=== PATIENT | female | born 1950 | race African-American/Black ===

== ENCOUNTER 2018-02-13 08:40 | Outpatient (CLI) | payer MEDICARE, MEDICAID | END 2018-02-13 08:41 | disposition home or self-care (01) | LOC: BICMAMMO 08:40 | PROVIDERS: ATTEND Internal Medicine | DX: Z12.31 Encounter for screening mammogram for malignant neoplasm of breast (principal); L90.5 Scar conditions and fibrosis of skin | CPT/HCPCS: 77063; 77067 ==

== ENCOUNTER 2018-04-10 13:15 | Observation (INO) | payer MEDICARE, OTHER ==
[2018-04-10 14:03] LABS: #Basophils 0.1 thou/uL (0.0-0.2); #Eosinphils 0.4 thou/uL (0.0-0.7); #Lymphocytes 2.4 thou/uL (1.20-3.40); #Monocytes 0.3 thou/uL (0.11-0.59); #Neutrophils 1.7 thou/uL (1.40-6.50); %Basophils 2.2 % (0.0-1.0); %Lymphocytes 47.9 % (21.0-51.0); %Monocytes 6.5 % (0.0-10.0); %Neutrophils 34.4 % (42.0-75.0); Mean Corpuscular HGB CONC 33.5 g/dL (32.0-36.0); Mean Corpuscular Hemoglobin 31.2 pg (27.0-31.0); Mean Corpuscular Volume 93.1 fL (78.0-98.0); Mean Platelet Volume 6.9 fL (7.4-10.4); Platelet Count 236 thou/uL (130-400); RBC Distribution Width 11.9 % (11.5-14.5); Red Blood Cell (RBC) Count 4.47 mill/uL (4.20-5.40); White Blood Cell (WBC) Count 4.9 thou/uL (4.8-10.8)
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
[2018-04-10 14:24] LABS: ALT (SGPT) 13 U/L (8-55); AST (SGOT) 22 U/L (5-34); Albumin 4.2 g/dL (3.4-4.8); Alkaline Phosphatase 85 U/L (40-150); Anion Gap 15 mmol/L (10-20); BUN (Urea Nitrogen) 10 mg/dL (9.8-20.1); Bilirubin, Total 0.4 mg/dL (0.2-1.2); CK (CPK) 53 U/L (29-168); Calc. Creatinine Clearance 0 mL/min (70-130); Calcium 9.4 mg/dL (7.8-10.44); Carbon Dioxide 24 mmol/L (23-31); Chloride 106 mmol/L (98-107); Estimated GFR-MDRD Greater than 90; Globulin 3.1 g/dL (2.4-3.5); Glucose 80 mg/dL (80-115); Lipase 13 U/L (8-78); Protein, Total 7.3 g/dL (6.0-8.3); Sodium 141 mmol/L (136-145)
[2018-04-10 14:28] LABS: CKMB 0.6 ng/mL (0-6.6); Troponin I Less than 0.010 ng/mL (< 0.028)
[2018-04-10] MEDS ORDERED: ISOVUE-370 76%-LOCM 1 ML ONE (14:42)
[2018-04-10 15:26] LABS: Bilirubin Negative (Negative); Blood, Urine Trace (Negative); Clarity CLEAR (Clear); Glucose, Urine (Dipstick) Negative (Negative); Leukocyte Trace (Negative); Nitrite Negative (Negative); Protein, Urine (Dipstick) Negative (Neg-Trace); Specific Gravity, Urine 1.016 (1.002-1.036)
[2018-04-10 15:29] LABS: Bacteria/HPF None Seen HPF (None Seen); Hyaline Casts/LPF 0-3 HYALINE CAST LPF (0-3 Hyaline); Pathc Cast-AUWi Flag 0.29 (0-2.49); Squamous Epithelial 0-3 HPF (0-3); WBC/HPF 0-3 HPF (0-3)
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
[2018-04-10] MEDS ORDERED: Nitroglycerin 2% Ointment 1 INCH/1 GM Packet ONE (17:03)
[2018-04-10] MEDS ORDERED: Aspirin 325 MG TAB ONE (17:03)
[2018-04-10] MEDS ORDERED: HYDROcodone/Acetaminophen 7.5/325 mg Tablet ONE (18:37)
[2018-04-10] MEDS ORDERED: HYDROcodone/Acetaminophen 10/325 mg Tablet ONE (18:41)
[2018-04-10 18:56] LABS: Troponin I Less than 0.010 ng/mL (< 0.028)
[2018-04-10] MEDS ORDERED: Ondansetron ODT 4 MG TAB SL PRN (20:09)
[2018-04-10] MEDS ORDERED: Ondansetron HCl/PF 4 MG/2 ML Vial IVP PRN (20:09)
[2018-04-10] MEDS ORDERED: Sodium Chloride 0.9% 1,000 ML IV SCH ×2 (20:09→20:34)
[2018-04-10] MEDS ORDERED: HYDROcodone/Acetaminophen 10/325 mg Tablet PO PRN (20:34)
[2018-04-10] MEDS ORDERED: Acetaminophen 325 MG TAB PO PRN (20:35)
[2018-04-10] MEDS ORDERED: Citalopram 20 MG TAB PO SCH (21:00)
[2018-04-10 23:21] VITALS: BMI 36.3
[2018-04-11 00:21] LABS: Troponin I Less than 0.010 ng/mL (< 0.028)
--- NOTE | 2018-04-11 00:46 | HP ---
CODE STATUS: FULL CODE PRIMARY CARE PHYSICIAN: Dr. Soriano. TIME OF EVALUATION: 07:30 p.m. CHIEF COMPLAINT: Chest pain. HISTORY OF PRESENT ILLNESS: This is a 67-year-old female patient with past medical history of chroni c back pain. The patient came to the hospital after having chest pain that has been on and off for a bout 1 week. The patient reporting the pain is mild to moderate and that has been on the left side, radiating to the lower area of the ribcage. She reports that it gets worse with movement of the ches t wall, no alleviating factors. Of note, the patient has been working out since 08/2017 and has got very good results, and has been exercising about 4-5 times a week. The patient does have a family hi story of coronary artery disease and hyperlipidemia in the family. Pain is associated with decrease in physical activity due to pain with movement in the back and chest. REVIEW OF SYSTEMS: Constitutional: No fever, chills, generalized weakness. Respiratory: No cough or sputum production, no shortness of breath. Cardiovascular: Chest pain as described in HPI. No p alpitation. No shortness of breath. Gastrointestinal: No nausea, no vomiting, no diarrhea or abdom inal pain. 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 Genitourinary: No burning on urina tion. Extremities: No leg swelling. All other systems were reviewed and negative except for the fi ndings mentioned above. PAST MEDICAL HISTORY: The patient has chronic back pain. SOCIAL HISTORY: She lives with family, no drugs, no smoking history. PAST SURGICAL HISTORY: Surgery in the back, hysterectomy, breast reduction, abdominal surgery. PSYCHIATRIC HISTORY: Depression. ALLERGIES: No known drug allergies. REPORTED MEDICATIONS: Louann, pantoprazole, aspirin. PHYSICAL EXAMINATION: VITAL SIGNS: On presentation, blood pressure 117/78 with heart rate 80, respiratory rate was 19, tem perature 98.5. GENERAL APPEARANCE: She is alert, oriented, not in any acute distress. HEENT: Eyes: Normal conjunctivae. Moist oral mucosa. Anicteric. NECK: No JVD. RESPIRATORY: Bilateral air entry. No rales, no wheezing. Symmetric expansion. CARDIOVASCULAR: Normal rate, regular rhythm. No murmurs, no gallop. No edema. ABDOMEN: Soft, normal bowel sounds. MUSCULOSKELETAL: Baseline range of motion and strength. No tenderness. SKIN: Warm and intact. No pallor, no rash, no redness. NEUROLOGIC: Baseline sensorium. No evidence of any new focal weakness. Baseline speech. Cranial n erves seem to be intact. PSYCHIATRIC: Good mood. No anxiety, oriented, optimal judgment. IMAGING: EKG was reviewed. The patient has normal sinus rhythm with a rate of 72 with a sinus arrhy thmia, QT corrected no evidence of any acute ischemic changes. Chest CT was done with contrast , no pulmonary embolism, no thoracic aortic dissection, no pneumothorax, no hemothorax, no masses. N o evidence of any acute findings. LABORATORY DATA: Labs were reviewed. The patient has white count 4.9, hemoglobin 14, MCV 93, platel et count 236. Sodium 141, potassium 4, chloride 106, carbon dioxide 24, anion gap 15, BUN 10, creati nine 0.71. GFR greater than 90, glucose 80, calcium 9.4, total bilirubin 0.4. Rest of LFTs were neg ative. Troponin has been negative twice. There was no pain and UA was negative. ASSESSMENT AND PLAN: The patient will be placed in the hospital for the following medical problems. 1. Chest pain, rule out acute coronary syndrome. The patient has a family history of CAD with hyper lipidemia, we will trend troponins, continue to monitor on tele. We will do a stress test in the [facility], especially since the patient has started working out since August and most likely fredyin g workout, we will rule out acute coronary syndromes or underlying undiagnosed coronary artery diseas e. 2. Deep venous thrombosis prophylaxis. 3. Chronic back pain, reconcile home medications.
[2018-04-11 04:51] LABS: BUN (Urea Nitrogen) 8 mg/dL (9.8-20.1); Calc. Creatinine Clearance 118 mL/min (70-130); Calcium 9.6 mg/dL (7.8-10.44); Estimated GFR-MDRD Greater than 90; Glucose 89 mg/dL (80-115)
[2018-04-11 05:00] LABS: Anion Gap 14 mmol/L (10-20); Carbon Dioxide 21 mmol/L (23-31); Chloride 107 mmol/L (98-107); Potassium 4.8 mmol/L (3.5-5.1); Sodium 137 mmol/L (136-145)
[2018-04-11 05:35] LABS: #Eosinphils 0.2 thou/uL (0.0-0.7); #Lymphocytes 1.4 thou/uL (1.20-3.40); #Monocytes 0.3 thou/uL (0.11-0.59); #Neutrophils 2.1 thou/uL (1.40-6.50); %Eosinophils 4.5 % (0.0-10.0); %Lymphocytes 34.9 % (21.0-51.0); %Monocytes 7.7 % (0.0-10.0); %Neutrophils 51.9 % (42.0-75.0); Hemoglobin 13.2 g/dL (12.0-16.0); Mean Corpuscular Hemoglobin 30.7 pg (27.0-31.0); Mean Corpuscular Volume 92.9 fL (78.0-98.0); Platelet Count 226 thou/uL (130-400); RBC Distribution Width 11.8 % (11.5-14.5); White Blood Cell (WBC) Count 3.9 thou/uL (4.8-10.8)
[2018-04-11 07:55] VITALS: TEMP 98.1
[2018-04-11] MEDS ORDERED: Aspirin 325 MG TAB PO SCH (08:00)
[2018-04-11] MEDS ORDERED: Enoxaparin Sodium 40 MG/0.4 ML SYRINGE SC SCH (09:00)
[2018-04-11] MEDS ORDERED: Aspirin 81 mg Enteric Coated Tablet PO SCH (09:00)
--- NOTE | 2018-04-11 14:38 | NM ---
MYOCARDIAL PERFUSION EVALUATION: INDICATION: Chest pain. RADIOPHARMACEUTICAL: 29.2 mCi Technetium 99m sestamibi IV with stress and 9.1 mCi Technetium of 99m sestamibi IV with rest . FINDINGS: When comparing the rest and stress images, no reversible myocardial perfusion defect is evident. The re is normal wall motion and thickening. The estimated LVEF is 66%. IMPRESSION: 1. No definite scintigraphic evidence of reversible myocardial ischemia. 2. Estimated left ventricular ejection fraction of 66%. POS: [facility]
[2018-04-11 15:21] VITALS: BP 110/73
--- NOTE | 2018-04-11 23:58 | DIS ---
DATE OF ADMISSION: 04/10/2018 DATE OF DISCHARGE: 04/11/2018 DIAGNOSES AT THE TIME OF DISCHARGE: 1. Chest pain, acute coronary syndrome was ruled out. This chest pain is more consistent with muscu loskeletal features. 2. Chronic back pain. HOSPITAL COURSE: The patient is a 67-year-old -[place] female with past medical history of c hronic back pain, she came to the hospital after having chest pain that has been on and off for about 1 week. The pain was rated at mild to moderate, was located on the left side radiating to the lower area of the rib cage and it got worse with the movement of the chest wall. She does have a family h istory of coronary artery disease and hyperlipidemia in the family. Pain was associated with decreas e in physical activity due to pain with movement in the back and chest. While in the emergency room, she was evaluated and her hemoglobin was 14, white count 4.9, platelet count 236,000. Normal electr olytes, normal kidney function, normal LFTs. Troponin has been negative x2. There were no any adames es on her UA. EKG showed normal sinus rhythm with ventricular rate of 72 beats per minute with sinus arrhythmia. No evidence of acute ischemic changes. Chest CT was done with contrast, no pulmonary e mbolism, no thoracic aortic dissection was found. The patient got admitted to the hospital for furth er evaluation for additional cardiac enzymes. She underwent a Cardiolite stress test the next day, w hich was negative. Her left ventricular ejection fraction was calculated at 66%. She is doing well. Blood pressure is 110/73, pulse is 84, temperature 98.1, respiratory rate is 16, O2 saturations 100 % on room air. She was initially seen and examined and evaluated before she is discharged. She is d ischarged home in good condition with recommendation to stay on healthy diet. Activity as tolerated and follow up with Dr. Soriano, her primary care physician in 1 week. MEDICATIONS AT THE TIME OF DISCHARGE: Pantoprazole 40 mg once a day, hydrocodone 10/325 mg 1 tablet every 4 hours p.r.n. as needed for the pain, citalopram 20 mg at bedtime, and aspirin 81 mg once a da y. This discharge is less than 30 minutes.
== END 2018-04-11 18:11 | disposition home or self-care (01) ==
LOC: ERS 13:15 → 2SW 19:21
PROVIDERS: ADMIT Internal Medicine; ATTEND Internal Medicine
DX: R07.9 Chest pain, unspecified (principal); M54.9 Dorsalgia, unspecified; G89.29 Other chronic pain; Z79.82 Long term (current) use of aspirin; Z79.899 Other long term (current) drug therapy
CPT/HCPCS: 71045; 71275; 78452; 80048; 80053; 82550; 82553; 83690; 83880; 84484 ×2; 85025 ×2; 93005; 93017; 94760; 96360; 96361; 99285; A9500; G0378; 36415; 81003; 81015; Q0162

== ENCOUNTER 2018-09-09 07:06 | Outpatient (CLI) | payer MEDICARE, MEDICAID ==
--- NOTE | 2018-09-09 08:41 | ULT ---
HEPATIC ULTRASOUND WITH DOPPLER: (transabdominal, young-scale, color-flow, and spectral Doppler) HISTORY: Hepatitis C. FINDINGS: The liver, spleen, gallbladder, and pancreas appear normal. The common duct measures 4 mm in diamete r. No free fluid is seen. Normal flow and spectral waveforms are noted in the hepatic portal and sp lenic vasculature. IMPRESSION: Normal examination. POS: [facility]
== END 2018-09-09 07:07 | disposition home or self-care (01) ==
LOC: BICULT 07:06
PROVIDERS: ATTEND Internal Medicine Gastroenterology
DX: B18.2 Chronic viral hepatitis C (principal); Z12.11 Encounter for screening for malignant neoplasm of colon; K21.9 Gastro-esophageal reflux disease without esophagitis; K59.00 Constipation, unspecified; E66.3 Overweight; M54.5 Low back pain
CPT/HCPCS: 76705

== ENCOUNTER 2019-02-19 07:57 | Outpatient (CLI) | payer MEDICARE, MEDICAID ==
--- NOTE | 2019-02-19 08:35 | MMO ---
Bilateral MAMMO Bilat Screen [facility]. CLINICAL HISTORY: Patient is 68 years old and is seen for screening. The patient has no family history of breast cancer. The patient has no personal history of cancer. The patient has a history of bilateral Breast reduction in April, - benign. VIEWS: The views performed were: bilateral craniocaudal with tomosynthesis and bilateral mediolateral oblique with tomosynthesis. FILMS COMPARED: The present examination has been compared to prior imaging studies performed at [facility] on 01/20/2015, 02/01/2016, 02/07/2017 and 02/13/2018. MAMMOGRAM FINDINGS: There are scattered fibroglandular densities. Finding 1: There are stable benign appearing calcifications seen in both breasts. Finding 2: There are stable post operative changes seen in both breasts. There are no suspicious masses, suspicious calcifications, or new areas of architectural distortion. IMPRESSION: THERE IS NO MAMMOGRAPHIC EVIDENCE OF MALIGNANCY. A ROUTINE FOLLOW-UP MAMMOGRAM IN 1 YEAR IS RECOMMENDED. THE RESULTS OF THIS EXAM WERE SENT TO THE PATIENT. ACR BI-RADS Category 2 - Benign finding MAMMOGRAPHY NOTE: 1. A negative mammogram report should not delay a biopsy if a dominant of clinically suspicious mass is present. 2. Approximately 10% to 15% of breast cancers are not detected by mammography. 3. Adenosis and dense breasts may obscure an underlying neoplasm.
== END 2019-02-19 07:58 | disposition home or self-care (01) ==
LOC: BICMAMMO 07:57
PROVIDERS: ATTEND Internal Medicine
DX: Z12.31 Encounter for screening mammogram for malignant neoplasm of breast (principal)
CPT/HCPCS: 77063; 77067

== ENCOUNTER 2020-10-12 08:47 | Outpatient (CLI) | payer MEDICARE, MEDICAID ==
--- NOTE | 2020-10-12 09:20 | MMO ---
Bilateral MAMMO Bilat Screen [facility]. CLINICAL HISTORY: Patient is 70 years old and is seen for screening. The patient has no family history of breast cancer. The patient has no personal history of cancer. The patient has a history of bilateral Breast reduction in April, - benign. VIEWS: The views performed were: bilateral craniocaudal with tomosynthesis and bilateral mediolateral oblique with tomosynthesis. FILMS COMPARED: The present examination has been compared to prior imaging studies performed at [facility] on 02/01/2016, 02/07/2017, 02/13/2018 and 02/19/2019. This study has been interpreted with the assistance of computer-aided detection. MAMMOGRAM FINDINGS: There are scattered fibroglandular densities. There are stable benign appearing calcifications seen in both breasts. There are no suspicious masses, suspicious calcifications, or new areas of architectural distortion. IMPRESSION: THERE IS NO MAMMOGRAPHIC EVIDENCE OF MALIGNANCY. A ROUTINE FOLLOW-UP MAMMOGRAM IN 1 YEAR IS RECOMMENDED. THE RESULTS OF THIS EXAM WERE SENT TO THE PATIENT. ACR BI-RADS Category 2 - Benign finding MAMMOGRAPHY NOTE: 1. A negative mammogram report should not delay a biopsy if a dominant of clinically suspicious mass is present. 2. Approximately 10% to 15% of breast cancers are not detected by mammography. 3. Adenosis and dense breasts may obscure an underlying neoplasm. Reported by: ROSE MALONE MD Electonically Signed: [id number]
== END 2020-10-12 08:48 | disposition home or self-care (01) ==
LOC: BICMAMMO 08:47
PROVIDERS: ATTEND Internal Medicine
DX: Z12.31 Encounter for screening mammogram for malignant neoplasm of breast (principal); Z98.82 Breast implant status
CPT/HCPCS: 77063; 77067

== ENCOUNTER 2022-01-28 08:14 | Outpatient (CLI) | payer MEDICARE, MEDICAID | END 2022-01-28 08:15 | disposition home or self-care (01) | LOC: BICMAMMO 08:14 | PROVIDERS: ATTEND Internal Medicine | DX: Z12.31 Encounter for screening mammogram for malignant neoplasm of breast (principal); Z98.890 Other specified postprocedural states | CPT/HCPCS: 77063; 77067 ==

== ENCOUNTER 2023-01-28 07:55 | Outpatient (CLI) | payer OTHER, MEDICAID | END 2023-01-28 07:56 | disposition home or self-care (01) | LOC: BICMAMMO 07:55 | PROVIDERS: ATTEND Internal Medicine | DX: Z12.31 Encounter for screening mammogram for malignant neoplasm of breast (principal) | CPT/HCPCS: 77063; 77067 ==

== ENCOUNTER 2023-11-12 21:31 | Emergency (ER) | payer OTHER, MEDICAID ==
[2023-11-12 22:44] LABS: Troponin I Less than 0.010 ng/mL (< 0.028)
== END 2023-11-13 00:14 | disposition home or self-care (01) ==
LOC: ERS 21:31
DX: R07.89 Other chest pain (principal); M62.838 Other muscle spasm
CPT/HCPCS: 36415; 71045; 84484; 93005